=== PATIENT | female | born 1935 | race Caucasian/White ===

== ENCOUNTER 2020-04-11 10:48 | Emergency (ER) | payer OTHER ==
[~2020-04-11] VITALS: Ht 154.9 cm; Wt 44.5 kg
[2020-04-11 10:50] VITALS: Ht 154.9 cm; Wt 44.5 kg
[2020-04-11 11:50] LABS: PLATELET COUNT 179 x10^3mcL (179-408)
[2020-04-11 12:01] LABS: RED CELL DISTRIBUTION WIDTH 15.5 % (12.3-17.7)
[2020-04-11 12:02] LABS: BASOPHIL % 2.7 % (0.2-1.3)
[2020-04-11 12:48] LABS: CALCIUM 8.6 mg/dL (8.5-10.1); CARBON DIOXIDE 27.4 mmol/L (21-32); CHLORIDE SERUM 107 mmol/L (98-107); CREATININE SERUM 0.9 mg/dL (0.6-1.0); GLUCOSE SERUM 93 mg/dL (74-106); POTASSIUM SERUM 3.8 mmol/L (3.5-5.1); SODIUM SERUM 142 mmol/L (136-145)
[2020-04-11 12:52] LABS: ALKALINE PHOSPHATASE 89 U/L (46-116); ALT/SGPT 31 U/L (14-59); AST/SGOT 32 U/L (15-37); BILIRUBIN TOTAL 0.3 mg/dL (0.20-1.00); TOTAL PROTEIN, SERUM 6.7 g/dL (6.4-8.2)
[2020-04-11 12:56] LABS: ALBUMIN 3.1 g/dL (3.4-5.0)
[2020-04-11 13:58] VITALS: BP 164/49
== END 2020-04-11 13:58 | disposition home or self-care (01) ==
LOC: ED 10:48
PROVIDERS: Emergency Medicine
DX: R04.0 Epistaxis (principal); I10 Essential (primary) hypertension; Z88.6 Allergy status to analgesic agent
CPT/HCPCS: 83880

== ENCOUNTER 2020-04-13 12:33 | Emergency (ER) | payer OTHER ==
[~2020-04-13] VITALS: Ht 154.9 cm; Wt 40.8 kg
[2020-04-13 12:55] VITALS: BP 169/56; Ht 154.9 cm; Wt 40.8 kg
== END 2020-04-13 14:25 | disposition home or self-care (01) ==
LOC: ED 12:33
DX: R04.0 Epistaxis (principal); I10 Essential (primary) hypertension; F41.9 Anxiety disorder, unspecified; Z48.00 Encounter for change or removal of nonsurgical wound dressing; Z91.030 Bee allergy status; Z88.6 Allergy status to analgesic agent